=== PATIENT | male | born 1995 | race Caucasian/White ===

== ENCOUNTER 2017-04-19 08:10 | Emergency (ER) | payer SELFPAY ==
--- NOTE | 2017-04-19 08:17 | UC ---
Back Pain HPI - HPI Summary HPI Summary: 21 year old male presents with complains of left lower back pain/spasm. - History of Current Complaint Stated Complaint: LOWER BACK PAIN WC Time Seen by Provider: 04/19/17 08:17 Hx Obtained From: Patient Onset/Duration: Sudden Onset Timing: Constant Severity Initially: Moderate Severity Currently: Moderate Pain Scale Used: 0-10 Numeric - 7 - Allergies/Home Medications Allergies/Adverse Reactions: Allergies Allergy/AdvReac Type Severity Reaction Status Date / Time No Known Allergies Allergy Verified 04/19/17 08:16 PMH/Surg Hx/FS Hx/Imm Hx Previously Healthy: Yes - Surgical History Surgical History: Yes Surgery Procedure, Year, and Place: T&A and bilateral ear tubes 2002 - Social History Alcohol Use: None Substance Use Type: None Smoking Status (MU): Never Smoked Tobacco - Immunization History Vaccination Up to Date: Yes Review of Systems Constitutional: Negative Skin: Negative Eyes: Negative ENT: Negative Respiratory: Negative Cardiovascular: Negative Gastrointestinal: Negative Genitourinary: Negative Motor: Negative Neurovascular: Negative Musculoskeletal: Myalgia, Other: - left sided back pain/spasm Neurological: Negative Psychological: Negative All Other Systems Reviewed And Are Negative: Yes Physical Exam Triage Information Reviewed: Yes Vital Signs Reviewed: Yes Eye Exam: Normal ENT Exam: Normal Dental Exam: Normal Neck exam: Normal Neck: Positive: 1 Respiratory Exam: Normal Cardiovascular Exam: Normal Abdominal Exam: Normal Musculoskeletal Exam: Normal Neurological Exam: Normal Psychological Exam: Normal Skin Exam: Normal Back Pain Course/Dx - Differential Dx/Diagnosis Provider Diagnoses: left sided lower back spasm Discharge - Discharge Plan Condition: Stable Disposition: HOME Prescriptions: Ibuprofen TAB* [Motrin TAB* 800 MG] 800 mg PO Q6H #30 tab Methocarbamol TAB* [Robaxin 500 MG TAB*] 500 mg PO TID PRN #30 tab PRN Reason: Spasms - Back Patient Education Materials: Sacroiliitis (ED) Forms: *Work Release Referrals: Rosi Cason MD [Medical Doctor] -
[2017-04-19 08:38] VITALS: BP 123/62
== END 2017-04-19 08:38 | disposition home or self-care (01) ==
LOC: UCCORT 08:10
DX: M62.838 Other muscle spasm (principal)
CPT/HCPCS: 99212; G0463

== ENCOUNTER 2019-05-01 20:59 | Emergency (ER) | payer BC ==
[2019-05-01 21:13] VITALS: BP 126/73
--- NOTE | 2019-05-01 21:34 | UC ---
Eye Complaint HPI - HPI Summary HPI Summary: Left eye is swollen and pink. Started swelling last night. Denies pain, ithcing or crusty drainage. Denies any trauma or injury. Left ear has been hurting on and off, slight swelling noted under that ear. Pt does not beleive they are related. Denies any changes to his vision. - History of Current Complaint Chief Complaint: UCEye Stated Complaint: LEFT EYE COMPLAINT Time Seen by Provider: 05/01/19 21:33 Hx Obtained From: Patient Onset/Duration: Sudden Onset, Lasting Days Timing: Constant Severity Initially: Mild Severity Currently: Mild Pain Intensity: 1 Location of Injury: Eye Lid (upper), Sclera - Allergies/Home Medications Allergies/Adverse Reactions: Allergies Allergy/AdvReac Type Severity Reaction Status Date / Time No Known Allergies Allergy Verified 05/01/19 21:14 Home Medications: Home Medications Ibuprofen TAB* [Motrin TAB* 800 MG] 800 mg PO Q6H PRN 05/01/19 [History Confirmed 05/01/19] PMH/Surg Hx/FS Hx/Imm Hx Previously Healthy: Yes - Surgical History Surgical History: Yes Surgery Procedure, Year, and Place: T&A and bilateral ear tubes 2002. wisdom teeth - Family History Known Family History: Positive: Hypertension - Social History Alcohol Use: Daily Substance Use Type: None Smoking Status (MU): Never Smoked Tobacco - Immunization History Vaccination Up to Date: Yes Review of Systems All Other Systems Reviewed And Are Negative: Yes Eyes: Positive: Eye Redness ENT: Positive: Ear Ache, Sinus Congestion Is Patient Immunocompromised?: No Physical Exam Triage Information Reviewed: Yes Appearance: Well-Appearing, Well-Nourished, Pain Distress Vital Signs: Initial Vital Signs Temp 99.5 F 05/01/19 21:08 Pulse 85 05/01/19 21:08 Resp 18 05/01/19 21:08 BP 126/73 05/01/19 21:08 Pulse Ox 99 05/01/19 21:08 Vital Signs Reviewed: Yes Eye Exam: Normal ENT Exam: Normal Dental Exam: Normal Neck exam: Normal Respiratory Exam: Normal Cardiovascular Exam: Normal Abdominal Exam: Normal Bowel Sounds: Positive: Present Musculoskeletal Exam: Normal Neurological Exam: Normal Psychological Exam: Normal Skin: Positive: Rashes - large area of rash, erythemic base with vesicles, extending from mid scalp to around the left eye Eye Complaint Course/Dx - Course Course Of Treatment: hx obtained, exam performed ,meds reviewed, - Differential Dx/Diagnosis Provider Diagnosis: Herpes zoster virus infection of face and ear nerves Discharge ED - Sign-Out/Discharge Documenting (check all that apply): Patient Departure All imaging exams completed and their final reports reviewed: No Studies - Discharge Plan Condition: Stable Disposition: HOME Patient Education Materials: Shingles (ED) Referrals: No Primary Care Phys,NOPCP [Primary Care Provider] - Andrea Xavier MD [Medical Doctor] - Alexei Mcgill MD [Medical Doctor] - Additional Instructions: 1. take the medication as prescribed. 2. FOllow up with the eye doctor on saturday 3. Ibufprofen for pain 4. Relax and de stress as much as possible. - Billing Disposition and Condition Condition: STABLE Disposition: Home
[2019-05-01] MEDS ORDERED: Acyclovir* 200 MG CAP PO ONE (21:49)
== END 2019-05-01 21:59 | disposition home or self-care (01) ==
LOC: UCCORT 20:59
DX: B02.8 Zoster with other complications (principal); H57.89 Other specified disorders of eye and adnexa
CPT/HCPCS: 99212; A9270-GY; G0463